=== PATIENT | female | born 1955 | race Caucasian/White ===

== ENCOUNTER 2018-11-15 07:46 | Outpatient (CLI) | payer BC ==
--- NOTE | 2018-11-15 09:00 | RAD ---
Exam: Lumbar spine 3 views HISTORY: Low back pain. FINDINGS: 5 lumbar type vertebral bodies. Note, the L5 vertebral body is transitional with enlarged t ransverse processes of pseudoarthrosis bilaterally. Lumbar spine vertebral body height is maintained. No fracture. Disc space heights are preserved. Ther e is 8 mm of anterolisthesis of L5 upon S1 without obvious associated spondylolysis. 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
== END 2018-11-15 07:47 | disposition home or self-care (01) ==
LOC: RAD-FRANK 07:46
PROVIDERS: ATTEND Nurse Practitioner Family
DX: M54.5 Low back pain (principal); M47.816 Spondylosis without myelopathy or radiculopathy, lumbar region
CPT/HCPCS: 72100

== ENCOUNTER 2018-12-03 10:37 | Outpatient (CLI) | payer BC ==
--- NOTE | 2018-12-03 12:35 | RAD ---
EXAM: LUMBAR SPINE FOUR VIEWS: History: Low back pain. Exam includes standing flexion and extension lateral views. FINDINGS: Multilevel disc osteophytosis. Marked narrowing at L5-S1. Approximately 0.9 cm grade I anterolisthesi s of L4 on L5. No significant change of position between flexion and extension. IMPRESSION: Grade I 0.9 cm anterolisthesis of L4 on L5. Severe disc narrowing and sclerosis at L5-S1. No abnormal translation between flexion and extension. POS: C
== END 2018-12-03 10:38 | disposition home or self-care (01) ==
LOC: TBSIIMAG 10:37
PROVIDERS: ATTEND Neurological Surgery
DX: M54.5 Low back pain (principal); M43.17 Spondylolisthesis, lumbosacral region; M48.07 Spinal stenosis, lumbosacral region
CPT/HCPCS: 72120

== ENCOUNTER 2019-03-18 10:23 | Outpatient (CLI) | payer BC ==
--- NOTE | 2019-03-18 12:41 | MRI ---
MRI LUMBAR SPINE WITH AND WITHOUT CONTRAST: DATE: 03/18/2019 HISTORY: 63-year-old female with low back pain and bilateral hip pain COMPARISON: 01/19/2011 TECHNIQUE: Multiple sequences obtained in axial and sagittal planes, pre and post IV injection of gadolinium-bas ed contrast agent. FINDINGS: For the purposes of this report, it will be assumed that there are 5 lumbar-type vertebrae. Vertebral body heights are maintained. No major bone marrow signal abnormality. Conus medullaris terminates at upper L1. No abnormal, unexpe cted enhancement. T12-L1:Normal. L1-2:Normal L2-3:Normal L3-4:Minimal degenerative retrolisthesis of L3 on L4. Disc space maintained. Normal disc signal. No c entral or neural foraminal stenosis. L4-5:Severe bilateral facet DJD (with bilateral facet joint effusions) causes anterolisthesis of L4 o n L5, which has worsened since 2010. Disc desiccation. Mild to moderate disc space narrowing. Diffuse disc bulge. The previously demonstrated left-sided synovial cyst is no longer present. There is a new left hemilaminotomy defect. There has been interval worsening of the bilateral facet osteophytosis and the right ligamentum flavum thickening, such that there is a new finding of impinge ment and displacement regarding the right S1 nerve root. The left facet osteophyte/ligamentum flavum thickening abuts the left S1 nerve root with minimal or mild displacement of that nerve root. Overall, these result in bilateral lateral recess stenosis, right greater than left, and mild to moderate central spinal canal stenosis. The left neural foraminal stenosis has become worse, and is n ow moderate. There is mild right neural foraminal stenosis. L5-S1:Again noted is the diffuse severe disc space narrowing and chronic diffuse mild endplate irregu larity. Modic type III and type I endplate marrow changes. Diffuse disc bulge. No high-grade central stenosis and no high-grade neural foraminal stenosis. Mild bilateral facet DJD. IMPRESSION: 1. Severe bilateral facet osteoarthrosis causing grade 1 spondylolisthesis at L4-5, which has worsene d since 2010. 2. Status post left hemilaminotomy at L4-5 with interval resolution of the left-sided synovial cyst. 3. The worsening of the bilateral facet osteoarthrosis at L5-S1 results in displacement of the right S1 nerve root, and contact and possible mild displacement of left S1 nerve root. 4. Interval worsening of now moderate degenerative disc disease at L4-5. No significant interval morrissey ge in the high-grade degenerative disc disease at L5-S1.
[2019-03-18] MEDS ORDERED: Gadobenate Dimeglumine 529 MG/1 ML (20ML VIAL) ONE (15:59)
== END 2019-03-18 10:24 | disposition home or self-care (01) ==
LOC: BICMRI 10:23
PROVIDERS: ATTEND Neurological Surgery
DX: M54.5 Low back pain (principal); M47.816 Spondylosis without myelopathy or radiculopathy, lumbar region; M43.16 Spondylolisthesis, lumbar region; M47.817 Spondylosis without myelopathy or radiculopathy, lumbosacral region; M51.36 Other intervertebral disc degeneration, lumbar region; M51.37 Other intervertebral disc degeneration, lumbosacral region; M71.38 Other bursal cyst, other site
CPT/HCPCS: 72158; 82565; A9577

== ENCOUNTER 2019-05-12 06:39 | Day surgery (SDC) | payer BC ==
[2019-05-09 11:01] VITALS: BMI 23.7
[2019-05-12 07:51] LABS: #Basophils 0.1 thou/uL (0.0-0.2); #Eosinphils 0.1 thou/uL (0.0-0.7); #Lymphocytes 1.6 thou/uL (1.20-3.40); #Monocytes 0.6 thou/uL (0.11-0.59); #Neutrophils 5.2 thou/uL (1.40-6.50); %Basophils 0.8 % (0.0-1.0); %Eosinophils 1.3 % (0.0-10.0); %Lymphocytes 20.6 % (21.0-51.0); %Monocytes 7.8 % (0.0-10.0); %Neutrophils 69.5 % (42.0-75.0); Hemoglobin 11.3 g/dL (12.0-16.0); Mean Corpuscular HGB CONC 31.1 g/dL (32.0-36.0); Mean Corpuscular Hemoglobin 26.2 pg (27.0-31.0); Mean Corpuscular Volume 84.2 fL (78.0-98.0); Mean Platelet Volume 7.5 fL (7.4-10.4); Platelet Count 225 thou/uL (130-400); RBC Distribution Width 14.1 % (11.5-14.5); Red Blood Cell (RBC) Count 4.32 mill/uL (4.20-5.40); White Blood Cell (WBC) Count 7.5 thou/uL (4.8-10.8)
[2019-05-12 08:06] LABS: Anion Gap 11 mmol/L (10-20); BUN (Urea Nitrogen) 13 mg/dL (9.8-20.1); Calc. Creatinine Clearance 71 mL/min (70-130); Calcium 8.9 mg/dL (7.8-10.44); Carbon Dioxide 24 mmol/L (23-31); Chloride 102 mmol/L (98-107); Estimated GFR-MDRD 58; Glucose 217 mg/dL (80-115); Potassium 3.8 mmol/L (3.5-5.1); Sodium 133 mmol/L (136-145)
[2019-05-12] MEDS ORDERED: Fentanyl 100 MCG/2 ML VIAL ONE ×2 (08:16→10:56)
[2019-05-12] MEDS ORDERED: Sodium Chloride 0.9% 10 ML ONE (08:49)
[2019-05-12] MEDS ORDERED: Lidocaine 2% Jelly 5 ML TUBE ONE (09:00)
[2019-05-12] MEDS ORDERED: HYDROcodone/Acetaminophen 5/325 mg Tablet ONE (13:02)
--- NOTE | 2019-05-12 13:50 | OP ---
DATE OF PROCEDURE: 05/12/2019 VAMP WETTER: Patty Upton PA-C PROCEDURES PERFORMED: Right L4-L5 laminectomy, facetectomy, foraminotomy interbody arthrodesis, intervertebral biomechanical device, local morselized autograft, demineralized bone matrix, posterolateral arthrodesis, pedicle screw instrumentation at L4-L5. DESCRIPTION OF PROCEDURE: The patient was brought to the operating room and intubated. She was rolled in a prone position on gel-filled chest rolls. An incision was made exposing L4 and L5, and the level was confirmed by x-ray. Previous scar was identified at left L4-L5 as anticipated. We performed a right L4-L5 laminectomy, facetectomy, and foraminotomy completely decompressing L4-L5 lateral recess and the right L4 nerve root. The disk itself was incised and debrided. The bony endplates were decorticated for the purpose of arthrodesis. An appropriate-sized intervertebral biomechanical PEEK device was brought into the field, filled with demineralized bone matrix and local morselized autograft, and tapped in place securely at L4-L5. Next, pedicle screws were placed at L4 and L5 on the right using lateral fluoroscopic guidance. A adan was secured between the screws, connected by nuts, which were final tightened. The wound was extensively irrigated, and MAC hemostasis was secured. A combination of demineralized bone matrix and local morselized autograft was laid over the lamina and posterolateral surfaces for the purpose of arthrodesis. Vancomycin powder was applied, and the wound was then closed in anatomic layers. Job ID: [id number]
--- NOTE | 2019-05-12 15:50 | EKG ---
Test Reason : PREOP Blood Pressure : / mmHG Vent. Rate : 071 BPM Atrial Rate : 071 BPM P-R Int : 184 ms QRS Dur : 092 ms QT Int : 428 ms P-R-T Axes : 064 029 046 degrees QTc Int : 465 ms Normal sinus rhythm Normal ECG Confirmed by TAM ORTIZ ([id number]) on 05/12/2019 3:50:23 PM Referred By: ANABEL Confirmed By:TAM ORTIZ
== END 2019-05-12 13:45 | disposition home or self-care (01) ==
LOC: SDC 06:39 → EDSTATUS 09:25 → SDC 13:45
PROVIDERS: ATTEND Neurological Surgery
PROC: 0SB20ZZ Excision of Lumbar Vertebral Disc, Open Approach (ICD-10-PCS; principal; 2019-05-12)
PROC: 00NY0ZZ Release Lumbar Spinal Cord, Open Approach (ICD-10-PCS; principal; 2019-05-12)
PROC: 0SG10AJ Fusion of 2 or more Lumbar Vertebral Joints with Interbody Fusion Device, Posterior Approach, Anterior Column, Open Approach (ICD-10-PCS; principal; 2019-05-12)
PROC: 0SG00J1 Fusion of Lumbar Vertebral Joint with Synthetic Substitute, Posterior Approach, Posterior Column, Open Approach (ICD-10-PCS; principal; 2019-05-12)
PROC: 0SG007J Fusion of Lumbar Vertebral Joint with Autologous Tissue Substitute, Posterior Approach, Anterior Column, Open Approach (ICD-10-PCS; principal; 2019-05-12)
DX: M43.16 Spondylolisthesis, lumbar region (principal); E11.9 Type 2 diabetes mellitus without complications; I10 Essential (primary) hypertension; Z79.4 Long term (current) use of insulin; Z79.899 Other long term (current) drug therapy
CPT/HCPCS: 76000; 80048; 85025; 93005; 93010; C1713; C1768; J0131; J0690; J3010; J3370; J3490

== ENCOUNTER 2019-05-27 15:21 | Outpatient (CLI) | payer BC ==
--- NOTE | 2019-05-27 15:41 | RAD ---
EXAM: XR Lumbar Spine 2 Or 3 View PROVIDED CLINICAL HISTORY: Spondylolisthesis of L4 and L5. Follow-up surgery. COMPARISON: 11/15/2018 FINDINGS: There has been interval postsurgical changes related to posterior fusion at the L4-5 with unilateral right-sided pedicular screws and posterior rods transfixing this level. Intradiscal prosthesis is noted in place. The most anterior markers are seen beneath the anterior aspect of the L4 vertebral armin dy but are located anterior to the anterior margin of the L5 vertebral body. There is persistent grade 1 anterolisthesis of L4 on L5. There is severe narrowing of the L5-S1 intervertebral disc space . The vertebral body heights are within normal limits. No fracture is seen. No other interval change. IMPRESSION: Interval postsurgical changes related to posterior fusion at the L4-5 level. There is stable grade 1 anterolisthesis of L4 on L5.
== END 2019-05-27 15:22 | disposition home or self-care (01) ==
LOC: TBSIIMAG 15:21
PROVIDERS: ATTEND Neurological Surgery
DX: M43.16 Spondylolisthesis, lumbar region (principal); Z98.1 Arthrodesis status
CPT/HCPCS: 72100

== ENCOUNTER 2019-11-18 12:20 | Outpatient (CLI) | payer BC ==
--- NOTE | 2019-11-18 13:32 | ULT ---
BILATERAL RENAL ULTRASOUND: 11/18/19 HISTORY: Recurrent UTIs. FINDINGS: The right kidney measures 11.8 cm in length and the left kidney measures 10.4 cm in length. There are cysts in the left kidney measuring 1.5 and 1.4 cm respectively. A prominent right renal pelvis is p resent. No hydronephrosis identified. There are bilateral ureteral jets in the urinary bladder. The u rinary bladder is grossly unremarkable with a volume of 116 mL. IMPRESSION: Left renal cysts. POS: [facility]
== END 2019-11-18 12:21 | disposition home or self-care (01) ==
LOC: BICULT 12:20
PROVIDERS: ATTEND Nurse Practitioner Family
DX: N39.0 Urinary tract infection, site not specified (principal); N28.1 Cyst of kidney, acquired
CPT/HCPCS: 76770

== ENCOUNTER 2020-10-05 16:40 | Observation (INO) | payer MEDICARE ==
[~2020-10-05 16:40] MED LIST: Iopamidol-370 76% 500 ML 1 ML ONE
[2020-10-05 17:21] LABS: #Basophils 0.1 thou/uL (0.0-0.2); #Eosinphils 0.1 thou/uL (0.0-0.7); #Monocytes 0.7 thou/uL (0.11-0.59); #Neutrophils 5.2 thou/uL (1.40-6.50); %Basophils 1.1 % (0.0-1.0); %Eosinophils 1.7 % (0.0-10.0); %Lymphocytes 24.7 % (21.0-51.0); %Monocytes 8.1 % (0.0-10.0); %Neutrophils 64.4 % (42.0-75.0); Hemoglobin 11.1 g/dL (12.0-16.0); Mean Corpuscular HGB CONC 31.8 g/dL (32.0-36.0); Mean Corpuscular Hemoglobin 27.4 pg (27.0-31.0); Mean Corpuscular Volume 86.1 fL (78.0-98.0); Mean Platelet Volume 7.2 fL (7.4-10.4); Platelet Count 237 thou/uL (130-400); Red Blood Cell (RBC) Count 4.05 mill/uL (4.20-5.40); White Blood Cell (WBC) Count 8.1 thou/uL (4.8-10.8)
[2020-10-05 17:51] LABS: ALT (SGPT) 8 U/L (8-55); AST (SGOT) 13 U/L (5-34); Albumin 3.8 g/dL (3.4-4.8); Alkaline Phosphatase 52 U/L (40-110); Anion Gap 10 mmol/L (10-20); BUN (Urea Nitrogen) 13 mg/dL (9.8-20.1); Bilirubin, Total 0.4 mg/dL (0.2-1.2); Calc. Creatinine Clearance 0 mL/min (70-130); Calcium 8.4 mg/dL (7.8-10.44); Carbon Dioxide 21 mmol/L (23-31); Chloride 109 mmol/L (98-107); Globulin 3.3 g/dL (2.4-3.5); Glucose 70 mg/dL (80-115); Potassium 3.3 mmol/L (3.5-5.1); Protein, Total 7.1 g/dL (5.8-8.1); Sodium 137 mmol/L (136-145)
[2020-10-05 19:47] LABS: Clarity Cloudy (Clear)
[2020-10-05 19:48] LABS: Glucose, Urine (Dipstick) Unable to Interpret mg/dL (Negative); Ketone, Urine Unable to Interpret mg/dL (Negative); Leukocyte Unable to Interpret Leu/uL (Negative); Nitrite Unable to Interpret (Negative); Protein, Urine (Dipstick) Unable to Interpret mg/dL (Neg-Trace); Specific Gravity, Urine 1.022 (1.002-1.036); Urobilinogen UNABLE TO INTERPRET mg/dL (Less than 2)
[2020-10-05 19:49] LABS: Bilirubin Unable to Interpret (Negative); Blood, Urine Unable to Interpret (Negative)
[2020-10-05 19:51] LABS: pH, Urine 5.9 (5.0-9.0)
[2020-10-05 19:57] LABS: Squamous Epithelial 0-3 HPF (0-3)
[2020-10-05 19:58] LABS: Bacteria/HPF 3+ HPF (None Seen); RBC/HPF 0-3 HPF (0-3)
[2020-10-05] MEDS ORDERED: Aspirin 325 MG TAB ONE (21:37)
[2020-10-06] MEDS ORDERED: Dextrose 5% in Water 1,000 ML IV PRN (03:12)
[2020-10-06] MEDS ORDERED: Dextrose 50% Abboject 50 ML SYRINGE SLOW IVP PRN (03:12)
[2020-10-06] MEDS ORDERED: Potassium Chloride 20 MEQ in Premix Bag 1 BAG IVPB SCH (03:15)
[2020-10-06] MEDS ORDERED: Potassium Chloride 20 MEQ/100 ML PREMIX BAG ONE (03:29)
[2020-10-06 05:05] VITALS: BMI 24.8
[2020-10-06 05:36] LABS: SARS-CoV-2 PCR by NAA Not Detected (NotDetected)
[2020-10-06] MEDS ORDERED: Acetaminophen 325 MG TAB PO PRN ×2 (05:38→11:32)
[2020-10-06 06:43] LABS: Cardiac Risk 1.8 (Less than 4.5)
[2020-10-06] MEDS ORDERED: FLU VACC QS2020-21(65YR UP)/PF 240 MCG/0.7 ML SYRINGE IM ONE (06:45)
[2020-10-06] MEDS ORDERED: Aspirin 81 mg Enteric Coated Tablet PO SCH (09:00)
[2020-10-06 11:19] LABS: #Eosinphils 0.1 thou/uL (0.0-0.7); #Lymphocytes 1.7 thou/uL (1.20-3.40); #Monocytes 0.5 thou/uL (0.11-0.59); #Neutrophils 6.4 thou/uL (1.40-6.50); %Basophils 0.5 % (0.0-1.0); %Eosinophils 1.3 % (0.0-10.0); %Monocytes 6.1 % (0.0-10.0); %Neutrophils 73.1 % (42.0-75.0); Hemoglobin 11.4 g/dL (12.0-16.0); Mean Corpuscular HGB CONC 32.2 g/dL (32.0-36.0); Mean Corpuscular Hemoglobin 27.7 pg (27.0-31.0); Mean Corpuscular Volume 86.2 fL (78.0-98.0); Mean Platelet Volume 7.7 fL (7.4-10.4); Platelet Count 215 thou/uL (130-400); RBC Distribution Width 15.2 % (11.5-14.5); Red Blood Cell (RBC) Count 4.13 mill/uL (4.20-5.40); White Blood Cell (WBC) Count 8.7 thou/uL (4.8-10.8)
[2020-10-06 11:40] LABS: Anion Gap 13 mmol/L (10-20); BUN (Urea Nitrogen) 13 mg/dL (9.8-20.1); Calc. Creatinine Clearance 73 mL/min (70-130); Calcium 8.6 mg/dL (7.8-10.44); Carbon Dioxide 21 mmol/L (23-31); Chloride 106 mmol/L (98-107); Glucose 229 mg/dL (80-115); Potassium 3.8 mmol/L (3.5-5.1); Sodium 136 mmol/L (136-145)
[2020-10-06] MEDS ORDERED: Ibuprofen 200 MG TAB PO SCH (12:15)
[2020-10-06 17:21] VITALS: BP 172/79; TEMP 98.1
[2020-10-06] MEDS ORDERED: Atorvastatin Calcium 40 MG TAB PO SCH (21:00)
== END 2020-10-06 20:05 | disposition home or self-care (01) ==
LOC: ERS 16:40 → ERHOLD 22:03 → 2SE 10-06 05:14
PROVIDERS: ADMIT Internal Medicine; ATTEND Internal Medicine
DX: I63.9 Cerebral infarction, unspecified (principal); E87.6 Hypokalemia; E10.9 Type 1 diabetes mellitus without complications; I10 Essential (primary) hypertension; R29.6 Repeated falls; D64.9 Anemia, unspecified; Z23 Encounter for immunization; Z79.899 Other long term (current) drug therapy; Z20.822 Contact with and (suspected) exposure to COVID-19; W18.30XA Fall on same level, unspecified, initial encounter; Y92.512 Supermarket, store or market as the place of occurrence of the external cause
CPT/HCPCS: 70450; 70496; 70498; 70551; 71046; 80048; 80053; 80061; 82962 ×2; 83735; 84484; 85025 ×2; 90662; 93005; 93306; 94760; 97139 ×3; 99285; G0008; G0378 ×3; U0003; U0005; 36415; 36416; 81003; 81015; 87635; 90471; J3480; Q9967

== ENCOUNTER 2021-08-10 23:11 | Emergency (ER) | payer MEDICARE ==
[2021-08-10 23:44] LABS: #Basophils 0.1 thou/uL (0.0-0.2); #Eosinphils 0.3 thou/uL (0.0-0.7); #Lymphocytes 2.4 thou/uL (1.20-3.40); #Monocytes 0.6 thou/uL (0.11-0.59); %Basophils 1.1 % (0.0-1.0); %Eosinophils 4.5 % (0.0-10.0); %Lymphocytes 37.4 % (21.0-51.0); %Monocytes 9.5 % (0.0-10.0); %Neutrophils 47.7 % (42.0-75.0); Mean Corpuscular HGB CONC 31.4 g/dL (32.0-36.0); Mean Corpuscular Hemoglobin 26.1 pg (27.0-31.0); Mean Corpuscular Volume 83.1 fL (78.0-98.0); Mean Platelet Volume 6.8 fL (7.4-10.4); Platelet Count 234 thou/uL (130-400); RBC Distribution Width 13.2 % (11.5-14.5); Red Blood Cell (RBC) Count 4.59 mill/uL (4.20-5.40); White Blood Cell (WBC) Count 6.3 thou/uL (4.8-10.8)
[2021-08-11 00:05] LABS: ALT (SGPT) 12 U/L (8-55); AST (SGOT) 18 U/L (5-34); Albumin 3.7 g/dL (3.4-4.8); Alkaline Phosphatase 65 U/L (40-110); Anion Gap 14 mmol/L (10-20); BUN (Urea Nitrogen) 15 mg/dL (9.8-20.1); Bilirubin, Total 0.3 mg/dL (0.2-1.2); Calc. Creatinine Clearance 0 mL/min (70-130); Calcium 8.7 mg/dL (7.8-10.44); Carbon Dioxide 22 mmol/L (23-31); Chloride 102 mmol/L (98-107); Globulin 3.4 g/dL (2.4-3.5); Glucose 159 mg/dL (80-115); Protein, Total 7.1 g/dL (5.8-8.1); Sodium 134 mmol/L (136-145)
== END 2021-08-11 02:22 | disposition home or self-care (01) ==
LOC: ERS 23:11
DX: I10 Essential (primary) hypertension (principal); E10.9 Type 1 diabetes mellitus without complications; Z79.4 Long term (current) use of insulin; Z79.899 Other long term (current) drug therapy
CPT/HCPCS: 36415; 71045; 80053; 84484; 85025; 93005

== ENCOUNTER 2022-05-01 14:17 | Outpatient (CLI) | payer MEDICARE | END 2022-05-01 14:18 | disposition home or self-care (01) | LOC: RAD-FRANK 14:17 | PROVIDERS: ATTEND Nurse Practitioner Family | DX: M25.521 Pain in right elbow (principal); S52.121A Displaced fracture of head of right radius, initial encounter for closed fracture ==

== ENCOUNTER 2022-08-25 07:49 | Outpatient (CLI) | payer MEDICARE | END 2022-08-25 07:50 | disposition home or self-care (01) | LOC: RAD-FRANK 07:49 | PROVIDERS: ATTEND Nurse Practitioner Family | DX: R05.9 Cough, unspecified (principal); J18.9 Pneumonia, unspecified organism | CPT/HCPCS: 71046 ==